=== PATIENT | female | born 1950 | race American Indian/Alaskan Native ===

== ENCOUNTER 2018-01-20 11:09 | Inpatient (IN) | payer BC ==
--- NOTE | 2018-01-20 11:43 | RAD ---
PROCEDURE: CHEST RADIOGRAPH, 1 VIEW HISTORY: Cough, SOB and lower extremity swelling . COMPARISON: None available. FINDINGS: LUNGS: Poor inspiration with low lung volumes, crowded bronchovascular markings and mild bibasilar atelectasis. PLEURA: No pneumothorax or pleural fluid seen. CARDIOVASCULAR: Heart appears enlarged. OSSEOUS STRUCTURES: No significant abnormalities. VISUALIZED UPPER ABDOMEN: Normal. OTHER FINDINGS: None. IMPRESSION: Poor inspiration with low lung volumes, crowded bronchovascular markings and mild bibasilar atelectasis.
--- NOTE | 2018-01-20 11:57 | C.PDOC ---
Time Seen by Provider: 01/20/18 11:49 Chief Complaint (Nursing): Shortness Of Breath Past Medical History Vital Signs: Last Vital Signs Temp 98.9 F 01/20/18 11:20 Pulse 101 H 01/20/18 11:20 Resp 17 01/20/18 11:20 BP 111/68 01/20/18 11:20 Pulse Ox 100 01/20/18 11:20 - Medical History PMH: HTN, Hypercholesterolemia - [facility] Procedures COLONOSCOPY (05/29/05) - Social History Hx Alcohol Use: No Hx Substance Use: No - Immunization History Hx Tetanus Toxoid Vaccination: No Hx Influenza Vaccination: Yes Hx Pneumococcal Vaccination: Yes ED Course And Treatment O2 Sat by Pulse Oximetry: 100 Disposition - Disposition
--- NOTE | 2018-01-20 12:01 | C.PDOC ---
History Of Present Illness <Miranda Carl - Last Filed: 01/21/18 13:16> <Gabriela Whitehead - Last Filed: 01/22/18 09:20> 67 year old female presents to the ED with concern for worsening pneumonia. Patient reports cough, shortness of breath, subjective fever and chills for 2 weeks. Patient states she saw her PMD and was started on Zithromax, of which she took doses on , Saturday, and Saturday. Patient was unable to complete the entire dose due to GI side effects. Patient reports increased dyspnea on exertion. She admits she is a smoker, but does not use any COPD/ Asthma medications. Patient denies chest pain, extremity numbness/weakness. (Miranda Carl) History Per: Patient History/Exam Limitations: no limitations Onset/Duration Of Symptoms: Other (2 weeks ) Current Symptoms Are (Timing): Still Present Exacerbating Factor(s): Exertion, Coughing Associated Symptoms: Fever, Chills. denies: Chest Pain Additional History Per: Patient <Miranda Carl - Last Filed: 01/21/18 13:16> <Gabriela Whitehead - Last Filed: 01/22/18 09:20> Time Seen by Provider: 01/20/18 11:49 Chief Complaint (Nursing): Shortness Of Breath Past Medical History Reviewed: Historical Data, Nursing Documentation, Vital Signs - Medical History PMH: HTN, Hypercholesterolemia Surgical History: No Surg Hx Family History: States: Unknown Family Hx - Social History Hx Alcohol Use: No Hx Substance Use: No - Immunization History Hx Tetanus Toxoid Vaccination: No Hx Influenza Vaccination: Yes Hx Pneumococcal Vaccination: Yes <Miranda Carl - Last Filed: 01/21/18 13:16> Vital Signs: Last Vital Signs Temp 98.0 F 01/22/18 07:05 Pulse 112 H 01/22/18 07:05 Resp 20 01/22/18 07:05 BP 127/60 01/22/18 07:05 Pulse Ox 94 L 01/22/18 07:05 - [facility] Procedures COLONOSCOPY (05/29/05) Review Of Systems Constitutional: Positive for: Fever, Chills Cardiovascular: Negative for: Chest Pain Respiratory: Positive for: Cough, Shortness of Breath, SOB with Excertion Neurological: Negative for: Weakness, Numbness <Miranda Carl - Last Filed: 01/21/18 13:16> Physical Exam - Physical Exam Appears: Non-toxic, No Acute Distress Skin: Normal Color, Warm, Dry Head: Atraumatic, Normacephalic Eye(s): bilateral: Normal Inspection Oral Mucosa: Moist Neck: Supple Chest: Symmetrical, No Deformity, No Tenderness Cardiovascular: Rhythm Regular, No Murmur Respiratory: No Rales, No Rhonchi, Wheezing (occasional, expiratory ), Other ( bronchial congestion noted ) Extremity: Normal ROM, Capillary Refill (less than 2 seconds ) Neurological/Psych: Oriented x3, Normal Speech, Normal Cognition <Miranda Carl - Last Filed: 01/21/18 13:16> ED Course And Treatment - Laboratory Results Result Diagrams: 01/20/18 11:57 01/20/18 11:57 ECG: Interpreted By Me ECG Rhythm: Sinus Tachycardia ECG Interpretation: Abnormal Rate From EC O2 Sat by Pulse Oximetry: 100 Pulse Ox Interpretation: Normal Progress Note: Bloodwork, urinalysis, CT Chest, CXR, EKG ordered and reviewed. Albuterol INH administered. <Miranda Carl - Last Filed: 01/21/18 13:16> - Laboratory Results Result Diagrams: 01/22/18 07:10 01/20/18 11:57 <Gabriela Whitehead - Last Filed: 01/22/18 09:20> Progress - Data Reviewed Data Reviewed: Lab, Diagnostic imaging, EKG, Old records <Miranda Carl Last Filed: 01/21/18 13:16> Disposition Counseled Patient/Family Regarding: Studies Performed, Diagnosis - Disposition Disposition Time: 14:00 <Miranda Carl - Last Filed: 01/21/18 13:16> <Gabriela Whitehead - Last Filed: 01/22/18 09:20> - Disposition Disposition: HOSPITALIZED Condition: STABLE - Clinical Impression Clinical Impression: Pneumonia, Dyspnea - Scribe Statement The provider has reviewed the documentation as recorded by the Scribe (Tahira Ko) <Miranda Carl - Last Filed: 01/21/18 13:16> <Gabriela Whitehead - Last Filed: 01/22/18 09:20> - Scribe Statement Provider Attestation: All medical record entries made by the Scribe were at my direction and personally dictated by me. I have reviewed the chart and agree that the record accurately reflects my personal performance of the history, physical exam, medical decision making, and the department course for this patient. I have also personally directed, reviewed, and agree with the discharge instructions and disposition. (SiddharthaMiranda) Physician Patient Turnover Patient Signed Over To: Gabriela Whitehead Handoff Comments: FU CT, DISPO <Miranda Carl - Last Filed: 01/21/18 13:16> Addendum <Miranda Carl - Last Filed: 01/21/18 13:16> <Gabriela Whitehead - Last Filed: 01/22/18 09:20> Addendum: 01/20/18 14:11 Patient admitted to medicine director of occupational therapy Dr. Karma Ko's service for left sided pneumonia, failued outpatient antibiotics (PO Azithromycin), mild pericardial effusion, thyromegaly. Patient's remote sensing technologist is Dr. Bay Le, consult entered. TSH ordered, and IV doxycycline ordered in addition to rocephin IV ( to cover for CAP). (Gabriela Whitehead) Decision To Admit <Miranda Carl - Last Filed: 01/21/18 13:16> - Pt Status Changed To: Hospital Disposition Of: Inpatient - Admit Certification Admit to Inpatient:: After my assessment, the patient will require hospitalization for at least two midnights. This is because of the severity of symptoms shown, intensity of services needed, and/or the medical risk in this patient being treated as an outpatient. - InPatient: Physician Admission Certification: I certify that this patient requires 2 or more midnights of care for the following reason:: see notes - . Bed Request Type: Telemetry Admitting Physician: Concepcion Ko <Gabriela Whitehead - Last Filed: 01/22/18 09:20> - . Patient Diagnosis: Pneumonia, Dyspnea, Failure of outpatient treatment, Thyromegaly, Pericardial effusion
[2018-01-20 12:02] LABS: BASO # 0.1 K/uL (0.0-0.2); BASO % 0.7 % (0.0-2.0); EOS % 0.1 % (0.0-4.0); HEMOGLOBIN 12.5 g/dL (11.0-16.0); LYMPH # 1.7 K/uL (1.0-4.3); LYMPH % 12.9 % (20.0-40.0); MEAN CELL VOLUME 91.1 fL (81.0-99.0); MEAN CORPUSCULAR HEMOGLOBIN 30.9 pg (27.0-31.0); MEAN CORPUSCULAR HGB CONC 33.9 g/dL (33.0-37.0); MEAN PLATELET VOLUME 8.2 fL (7.2-11.7); MONO # 0.7 K/uL (0.0-0.8); MONO % 5.8 % (0.0-10.0); NEUT # 10.5 K/uL (1.8-7.0); NEUT % 80.5 % (50.0-75.0); RBC 4.06 Mil/uL (3.80-5.20); RED CELL DISTRIBUTION WIDTH 13.5 % (11.5-14.5)
[2018-01-20 12:23] LABS: ALB/GLOB RATIO 1.3 (1.0-2.1); ALBUMIN 4.4 g/dL (3.5-5.0); CALCIUM 9.5 mg/dl (8.6-10.4); GFR AFRICAN-AMERICAN > 60; GFR NON-AFRICAN AMERICAN > 60
[2018-01-20 12:27] LABS: B-TYPE NATRIURETIC PEPTIDE 20.5 pg/mL (0-900)
[2018-01-20 12:28] LABS: ALT/SGPT 15 U/L (9-52); AST/SGOT 22 U/L (14-36); BLOOD UREA NITROGEN 19 mg/dL (7-17)
[2018-01-20 12:50] LABS: SQUAMOUS EPITHIAL 9 /hpf (0-5); URINE BACTERIA OCC (<OCC); URINE BILIRUBIN NEGATIVE (NEGATIVE); URINE BLOOD NEGATIVE (NEGATIVE); URINE CLARITY Hazy (Clear); URINE COLOR Amber (YELLOW); URINE GLUCOSE (UA) NORMAL (Normal); URINE PROTEIN NEGATIVE (NEGATIVE); URINE UROBILINOGEN NORMAL mg/dL (0.2-1.0)
[2018-01-20] MEDS ORDERED: Albuterol-Ipratrop 3 mg / 0.5 (3 ml) UD ONE (12:52)
[2018-01-20 12:53] LABS: URINE LEUKOCYTE ESTERASE TRACE Leu/uL (Negative)
[2018-01-20] MEDS: Albuterol-Ipratrop 3 mg / 0.5 (3 ml) UD IH SCH ×2 (13:00→13:01)
[2018-01-20] MEDS ORDERED: cefTRIAXone IV 1 gm in Dextros 50 ML IVPB ONE (13:06)
--- NOTE | 2018-01-20 13:45 | CT ---
PROCEDURE: CT chest dated 01/20/2018 HISTORY: COUGH SOB RO PNEUMONIA COMPARISON: Comparison made with chest radiograph obtained earlier same day TECHNIQUE: Contiguous helical/transaxial biotin images were obtained through the chest without intravenous contrast enhancement. Sagittal and coronal reconstructions were performed. Radiation dose (DLP): 483.51 mGy-cm. This CT exam was performed using one or more of the following dose reduction techniques: Automated exposure control, adjustment of the mA and/or kV according to patient size, and/or use of iterative reconstruction technique. FINDINGS: LUNGS: There is left lower lobe consolidation likely representing some combination of atelectasis and or infiltrate. Air bronchograms are present. There is also small left-sided effusion. Recommend follow-up CT scan following treatment to assess resolution and exclude underlying mass. Minor linear scarring changes seen in the left right lung base localized chronic atelectasis and or scarring the medial aspect the right middle lobe. Ground-glass opacities are also present in the lower with what appears represent small of early reticulonodular densities. . Some very minor ground-glass opacity seen in the lateral aspect right middle lobe. MEDIASTINUM: Heart is mildly enlarged. Small pericardial effusion. Central airways midline and patent. No large central endoluminal lesions. There are multiple small nonspecific mediastinal lymph nodes. Markedly enlarged heterogeneous lobular thyroid gland which results in compression of the trachea with mild shift of the trachea to right side. Findings may represent a large thyroid border however followup thyroid ultrasound recommended to exclude other pathology including thyroid carcinoma. There may also be a few punctate calcifications seen in the anterior margin left lobe. There is also a coarse calcification along the posterior margin of the enlarged thyroid gland which could conceivably represent calcification within the carotid bifurcation the calcification within the thyroid itself not excluded. . PLEURA: As above. No evidence pneumothorax. BONES: Mild multilevel degenerative spondylosis of the lower cervical, thoracic and to a lesser degree upper lumbar spine. UPPER ABDOMEN: There is a small approximately 2 cm elliptical shaped low-attenuation focus anterior aspect the left lobe liver bordering the fissure that exhibits Hounsfield units range between the low single digits and lower to mid teens that may represent a cyst. . Abdominal ultrasound could confirm if necessary. There also appear to be a few punctate hepatic calcifications possibly related to prior exposure to a granulomatous disease process. Mildly enlarged bilateral adrenal glands. OTHER FINDINGS: None. IMPRESSION: There is left lower lobe consolidation likely representing some combination of atelectasis and or infiltrate. Air bronchograms are present. There is also small left-sided effusion. Recommend follow-up CT scan following treatment to assess resolution and exclude underlying mass. Minor linear scarring changes seen in the left right lung base localized chronic atelectasis and or scarring the medial aspect the right middle lobe. Ground-glass opacities are also present in the lower with what appears represent small of early reticulonodular densities. . Some very minor ground-glass opacity seen in the lateral aspect right middle lobe. Cardiomegaly with small pericardial effusion. Massively enlarged heterogeneous thyroid gland. This could represent a large goiter however other thyroid pathology including neoplasm not excluded. Thyroid ultrasound followup recommended. Enlarged thyroid results and compression of the trachea and mild right-sided tracheal shift. Possible on hepatic cyst. Ultrasound followup could confirm.
--- NOTE | 2018-01-20 15:38 | US ---
HISTORY: thyroid enlargement TECHNIQUE: Sonographic evaluation of the thyroid gland. COMPARISON: FINDINGS: RIGHT LOBE: Measures 3.5 x 4.8 x 9.95 cm. Heterogenous echotexture, normal vascularity Nodules: None LEFT LOBE: Measures 3.8 x 5.9 x 10.9 cm. Heterogenous echotexture, normal vascularity Nodules: None ISTHMUS: Measures 0.36 cm. Nodules: None OTHER FINDINGS: None . IMPRESSION: Markedly enlarged gland. Diffuse heterogeneities without focal nodules.
--- NOTE | 2018-01-20 16:34 | CARD ---
APPROVED REPORT EXAM: Two-dimensional and M-mode echocardiogram with Doppler and color Doppler. Other Information Quality : AverageRhythm : NSR INDICATION Pericardial Effusion M-Mode DIMENSIONS RVDd1.56 (2.1-3.2cm)Left Atrium (MM)3.78 (2.5-4.0cm) IVSd1.04 (0.7-1.1cm)Aortic Root2.64 (2.2-3.7cm) LVDd4.44 (4.0-5.6cm)Aortic Cusp Exc.1.56 (1.5-2.0cm) PWd0.97 (0.7-1.1cm)FS (%) 33 % LVDs2.98 (2.0-3.8cm)LVEF (%)61 (>50%) Aortic Valve AoV Peak Iieimhqf206.5cm/[place] Peak GR.13mmHg Mitral Valve MV E Mwmkxmcs48.9cm/sMV A Aupytxjl654.8cm/sE/A ratio0.5 TDI E/Lateral E'0.0E/Medial E'0.0 Tricuspid Valve TR Peak [id number]/sTR Peak Gr.[id number] <Conclusion> poor window. tds. la,lv & ra rv appears normal size. nomral lv wall motion,thickness & systolic function with lvef of more than 70%. lv diastolic dysfunciton grade one. aortic,mitral,tv & pv grossly appears normal. mild tr with mildly elevated pulmonary systolic pressures of 44 mm of hg. normal size aortic root & ivc. no pericardial effusion.
--- NOTE | 2018-01-20 19:13 | CP.PCM.HP ---
Present on Admission - Present on Admission Any Indicators Present on Admission: No Past Patient History - Past Medical History & Family History Past Medical History?: Yes - Past Social History Smoking Status: Heavy Smoker > 10 Cigarettes Daily - CARDIAC Hx Cardiac Disorders: Yes Hx Hypercholesterolemia: Yes Hx Hypertension: Yes - PULMONARY Hx Respiratory Disorders: No - NEUROLOGICAL Hx Neurological Disorder: No - HEENT Hx HEENT Problems: No - RENAL Hx Chronic Kidney Disease: No - ENDOCRINE/METABOLIC Hx Endocrine Disorders: Yes Hx Diabetes Mellitus Type 2: Yes Other/Comment: thyroid condition - HEMATOLOGICAL/ONCOLOGICAL Hx Blood Disorders: No - INTEGUMENTARY Hx Dermatological Problems: No - MUSCULOSKELETAL/RHEUMATOLOGICAL Hx Musculoskeletal Disorders: No Hx Falls: No - GASTROINTESTINAL Hx Gastrointestinal Disorders: No - GENITOURINARY/GYNECOLOGICAL Hx Genitourinary Disorders: No - PSYCHIATRIC Hx Psychophysiologic Disorder: No Hx Substance Use: No - SURGICAL HISTORY Hx Surgeries: Yes Hx Section: Yes - ANESTHESIA Hx Anesthesia: Yes Hx Anesthesia Reactions: No Hx Malignant Hyperthermia: No Has any member of the family had a problem w/ anesthesia?: No Meds Allergies/Adverse Reactions: Allergies Allergy/AdvReac Type Severity Reaction Status Date / Time prednisone Allergy Intermediate Verified 01/20/18 11:28 azithromycin Allergy Mild DIARRHEA Verified 01/20/18 11:28 [From Zithromax Z-Francis] levofloxacin [From Levaquin] Allergy Mild RASH Verified 01/20/18 11:28 Physical Exam - Constitutional Appears: Well - Head Exam Head Exam: ATRAUMATIC, NORMAL INSPECTION, NORMOCEPHALIC - Eye Exam Eye Exam: EOMI, Normal appearance, PERRL - ENT Exam ENT Exam: Mucous Membranes Moist, Normal Exam - Neck Exam Neck exam: Positive for: Normal Inspection - Respiratory Exam Respiratory Exam: Decreased Breath Sounds - Cardiovascular Exam Cardiovascular Exam: REGULAR RHYTHM, +S1, +S2 - GI/Abdominal Exam GI & Abdominal Exam: Diminished Bowel Sounds, Soft - Rectal Exam Rectal Exam: Deferred Results - Vital Signs Recent Vital Signs: Last Vital Signs Temp 98.6 F 01/20/18 15:45 Pulse 118 H 01/20/18 15:45 Resp 20 01/20/18 15:45 BP 109/60 01/20/18 15:45 Pulse Ox 100 01/20/18 15:45 - Labs Result Diagrams: 01/20/18 11:57 01/20/18 11:57 Labs: Laboratory Results - last 24 hr 01/20/18 01/20/18 01/20/18 11:57 11:57 12:33 WBC 13.0 H RBC 4.06 Hgb 12.5 Hct 37.0 MCV 91.1 MCH 30.9 MCHC 33.9 RDW 13.5 Plt Count 289 MPV 8.2 Neut % (Auto) 80.5 H Lymph % (Auto) 12.9 L [place] % (Auto) 5.8 Eos % (Auto) 0.1 Baso % (Auto) 0.7 Neut # (Auto) 10.5 H Lymph # (Auto) 1.7 [place] # (Auto) 0.7 Eos # (Auto) 0.0 Baso # (Auto) 0.1 Sodium 137 Potassium 4.5 Chloride 94 L Carbon Dioxide 33 H Anion Gap 15 BUN 19 H Creatinine 0.9 Est GFR ( Amer) > 60 Est GFR (Non-Af Amer) > 60 POC Glucose (mg/dL) Random Glucose 207 H Calcium 9.5 Total Bilirubin 1.1 AST 22 ALT 15 Alkaline Phosphatase 81 Troponin I < 0.0120 NT-Pro-B Natriuret Pep 20.5 Total Protein 7.8 Albumin 4.4 Globulin 3.4 Albumin/Globulin Ratio 1.3 TSH 3rd Generation 0.50 Urine Color [place]ili[place] Urine Clarity Hazy Urine pH 5.0 Ur Specific [place] 1.019 Urine Protein Negative Urine Glucose (UA) Normal Urine Ketones Negative Urine Blood Negative Urine Nitrate Negative Urine Bilirubin Negative Urine Urobilinogen Normal Ur Leukocyte Esterase Trace Urine WBC (Auto) 8 H Urine RBC (Auto) 2 Ur Squamous Epith Cells 9 H Urine Bacteria Occ H 01/20/18 17:07 WBC RBC Hgb Hct MCV MCH MCHC RDW Plt Count MPV Neut % (Auto) Lymph % (Auto) [place] % (Auto) Eos % (Auto) Baso % (Auto) Neut # (Auto) Lymph # (Auto) [place] # (Auto) Eos # (Auto) Baso # (Auto) Sodium Potassium Chloride Carbon Dioxide Anion Gap BUN Creatinine Est GFR ( Amer) Est GFR (Non-Af Amer) POC Glucose (mg/dL) 283 H Random Glucose Calcium Total Bilirubin AST ALT Alkaline Phosphatase Troponin I NT-Pro-B Natriuret Pep Total Protein Albumin Globulin Albumin/Globulin Ratio TSH 3rd Generation Urine Color Urine Clarity Urine pH Ur Specific [place] Urine Protein Urine Glucose (UA) Urine Ketones Urine Blood Urine Nitrate Urine Bilirubin Urine Urobilinogen Ur Leukocyte Esterase Urine WBC (Auto) Urine RBC (Auto) Ur Squamous Epith Cells Urine Bacteria Assessment & Plan - Assessment and Plan (Free Text) Plan: IV Rocephin IV doxycycline pantoprazole Lovenox continue glyburide/metformin all the medication ID consult Fingerstick before meals and at bedtime low-dose NovoLog
[2018-01-20] MEDS: (Novolog) Insulin Aspart, Recombinant 100 u/ml 10 ml vial SC SCH (22:42)
[2018-01-21] MEDS: (Novolog) Insulin Aspart, Recombinant 100 u/ml 10 ml vial SC SCH ×4 (08:30→21:21)
[2018-01-21] MEDS: Multivitamin With Minerals Tab PO SCH (10:00)
[2018-01-21] MEDS ORDERED: VITAMIN B COMPLEX PO SCH (10:00)
[2018-01-21] MEDS: Pantoprazole 40 mg EC Tab PO SCH (10:00)
[2018-01-21] MEDS ORDERED: MULTIVITAMIN PO SCH (10:00)
[2018-01-21] MEDS: (Lantus) Insulin Glargine, Recombinant SC SCH (10:01)
[2018-01-21] MEDS: Enoxaparin 40 mg Syringe SC SCH (10:01)
--- NOTE | 2018-01-21 10:44 | CP.PCM.CON ---
History of Present Illness - History of Present Illness History of Present Illness: 67 year old female presents to the ED with concern for worsening pneumonia. Patient reports cough, shortness of breath, subjective fever and chills for 2 weeks. Patient states she saw her PMD and was started on Zithromax, of which she took doses on , Saturday, and Saturday. Patient was unable to complete the entire dose due to GI side effects. Patient reports increased dyspnea on exertion. She admits she is a smoker, but does not use any COPD/ Asthma medications. Patient denies chest pain, extremity numbness/weakness. found to have massive thyromegaly and LLL infiltrate on CT work up in progress Review of Systems - Review of Systems All systems: reviewed and no additional remarkable complaints except - Constitutional Constitutional: As Per HPI - EENT Eyes: absent: As Per HPI, Blind Spots, Blurred Vision, Change in Vision, Decreased Night Vision, Diplopia, Discharge, Dry Eye, Exophthalmos, Floaters, Irritation, Itchy Eyes, Loss of Peripheral Vision, Pain, Photophobia, Requires Corrective Lenses, Sees Flashes, Spots in Vision, Tunnel Vision, Other Visual Disturbances, Loss of Vision, Other Ears: absent: As Per HPI, Decreased Hearing, Ear Discharge, Ear Pain, Tinnitus, Abnormal Hearing, Disequilibrium, Dizziness, Other Nose/Mouth/Throat: absent: As Per HPI, Epistaxis, Nasal Congestion, Nasal Discharge, Nasal Obstruction, Nasal Trauma, Nose Pain, Post Nasal Drip, Sinus Pain, Sinus Pressure, Bleeding Gums, Change in Voice, Dental Pain, Dry Mouth, Dysphagia, Halitosis, Hoarsness, Lip Swelling, Mouth Lesions, Mouth Pain, Odynophagia, Sore Throat, Throat Swelling, Tongue Swelling, Facial Pain, Neck Pain, Neck Mass, Other - Cardiovascular Cardiovascular: absent: As Per HPI, Acrocyanosis, Chest Pain, Chest Pain at Rest , Chest Pain with Activity, Claudication, Diaphoresis, Dyspnea, Dyspnea on Exertion, Edema, Irregular Heart Rhythm, Pain Radiating to Arm/Neck/Jaw, Leg Edema, Leg Ulcers, Lightheadedness, Orthopnea, Palpitations, Paroxysmal Nocturnal Dyspnea, Pedal Edema, Radiating Pain, Rapid Heart Rate, Slow Heart Rate, Syncope, Other - Respiratory Respiratory: As Per HPI, Cough, Dyspnea. absent: Hemoptysis - Gastrointestinal Gastrointestinal: absent: As Per HPI, Abdominal Pain, Belching, Bloating, Change in Bowel Habits, Change in Stool Character, Coffee Ground Emesis, Constipation, Cramping, Diarrhea, Dyspepsia, Dysphagia, Early Satiety, Excessive Flatus, Fecal Incontinence, Heartburn, Hematemesis, Hematochezia, Loose Stools, Melena, Nausea, Odynophagia, Temesmus, Vomiting, Other - Genitourinary Genitourinary: absent: As Per HPI, Change in Urinary Stream, Difficulty Urinating, Dysuria, Flank Pain, Hematuria, Pyuria, Nocturia, Urinary Incontinence, Urinary Frequency, Urinary Hesitance, Urinary Urgency, Voiding Freq/Small Amts, Freq UTI, Hx Renal/Bladder Calculi, Hx /Renal Surgery, Bladder Distension, Other - Reproductive: Female Reproductive:Female: absent: As Per HPI, Amenorrhea, Amenorrhea/ Control, Currently Menstual, Cycle <21 Days, Cycle >35 Days, Cycle Variable, Menses 1-7 Days, Menses >/= 8 Days, Menses Variable, Cycle > 4 Weeks Between, No Menses for 6 Months, Heavy Menses, Light Menses, Normal Menses, Spotting Between Cycles , S/P Hysterectomy, Menopausal, Post Menopausal, Premenarche, Abnormal Vaginal Bleeding, Dysmenorrhea, Dyspareunia, Genital Lesions, Genital Pruritis, Pelvic Pain, Prolapse Symptoms, Sexual Dysfunction, Vaginal Discharge, Vaginal Dryness , Vaginal Odor, Vaginal Pruritis, Other - Menstruation Menstruation: absent: As Per HPI, Amenorrhea, Amenorrhea/ Control, Currently Menstual, Cycle <21 Days, Cycle >35 Days, Cycle Variable, Menses 1-7 Days, Menses >/= 8 Days, Menses Variable, Cycle > 4 Weeks Between, No Menses for 6 Months, Heavy Menses, Light Menses, Normal Menses, Spotting Between Cycles , S/P Hysterectomy, Menopausal, Post Menopausal, Premenarche, Abnormal Vaginal Bleeding, Dysmenorrhea, Other - Musculoskeletal Musculoskeletal: absent: As Per HPI, Abnormal Gait, Arthralgias, Atrophy, Back Pain, Deformity, Joint Swelling, Limited Range of Motion, Loss of Height, Muscle Cramps, Muscle Weakness, Myalgias, Neck Pain, Numbness, Radiating Pain into Limb, Stiffness, Tingling, Other - Integumentary Integumentary: absent: As Per HPI, Acne, Alopecia, Bleeding Lesions, Change in Hair, Change in Nails, Change in Pigmentation, Changing Lesions, Dry Skin, Erythema, Furuncle, Hirsutism, Lesions, New Lesions, Non-Healing Lesions, Photosensitivity, Pruritus, Rash, Skin Pain, Skin Ulcer, Sores, Striae, Swelling , Unusual Bruising, Wounds, Jaundice, Other - Neurological Neurological: absent: As Per HPI, Abnormal Gait, Abnormal Hearing, Abnormal Movements, Abnormal Speech, Behavioral Changes, Burning Sensations, Confusion, Convulsions, Disequilibrium, Dizziness, Numbness, Focal Weakness, Frequent Falls , Headaches, Lack of Coordination, Loss of Vision, Memory Loss, Paresthesias, Radicular Pain, Restless Legs, Sensory Deficit, Syncope, Tingling, Tremor, Vertigo, Weakness, Other Visual Disturbances, Other - Psychiatric Psychiatric: absent: As Per HPI, Abnormal Sleep Pattern, Anhedonia, Anxiety, Auditory Hallucinations, Behavioral Changes, Change in Appetite, Change in Libido, Confusion, Depression, Difficulty Concentrating, Hallucinations, Homicidal Ideation, Hopelessness, Irritability, Memory Loss, Mood Swings, Panic Attacks, Paranoia, Suicidal Ideation, Visual Hallucinations, Tactile Hallucinations, Other - Endocrine Endocrine: As Per HPI - Hematologic/Lymphatic Hematologic: absent: As Per HPI, Easy Bleeding, Easy Bruising, Lymphadenopathy, Other Past Patient History - Past Medical History & Family History Past Medical History?: Yes - Past Social History Smoking Status: Heavy Smoker > 10 Cigarettes Daily - CARDIAC Hx Cardiac Disorders: Yes Hx Hypercholesterolemia: Yes Hx Hypertension: Yes - PULMONARY Hx Respiratory Disorders: No - NEUROLOGICAL Hx Neurological Disorder: No - HEENT Hx HEENT Problems: No - RENAL Hx Chronic Kidney Disease: No - ENDOCRINE/METABOLIC Hx Endocrine Disorders: Yes Hx Diabetes Mellitus Type 2: Yes Other/Comment: thyroid condition - HEMATOLOGICAL/ONCOLOGICAL Hx Blood Disorders: No - INTEGUMENTARY Hx Dermatological Problems: No - MUSCULOSKELETAL/RHEUMATOLOGICAL Hx Musculoskeletal Disorders: No Hx Falls: No - GASTROINTESTINAL Hx Gastrointestinal Disorders: No - GENITOURINARY/GYNECOLOGICAL Hx Genitourinary Disorders: No - PSYCHIATRIC Hx Psychophysiologic Disorder: No Hx Substance Use: No - SURGICAL HISTORY Hx Surgeries: Yes Hx Section: Yes - ANESTHESIA Hx Anesthesia: Yes Hx Anesthesia Reactions: No Hx Malignant Hyperthermia: No Has any member of the family had a problem w/ anesthesia?: No Meds Allergies/Adverse Reactions: Allergies Allergy/AdvReac Type Severity Reaction Status Date / Time prednisone Allergy Intermediate Verified 01/20/18 11:28 azithromycin Allergy Mild DIARRHEA Verified 01/20/18 11:28 [From Zithromax Z-Francis] levofloxacin [From Levaquin] Allergy Mild RASH Verified 01/20/18 11:28 - Medications Medications: Current Medications Aspirin (Aspirin Chewable) 81 mg PO DAILY [facility] Last Admin: 01/21/18 10:12 Dose: 81 mg Cyanocobalamin (Vitamin B12 1000 Mcg Tab) 1,000 mcg PO DAILY [facility] Last Admin: 01/21/18 10:00 Dose: 1,000 mcg Enoxaparin Sodium (Lovenox) 40 mg SC DAILY [facility] Last Admin: 01/21/18 10:01 Dose: 40 mg Glyburide (Micronase) 5 mg PO BID [facility] Last Admin: 01/21/18 10:00 Dose: 5 mg Glyburide (Micronase) 2 mg PO DAILY [facility] Last Admin: 01/21/18 10:14 Dose: 2 mg Ceftriaxone Sodium 1 gm/ (Sodium Chloride) 100 mls @ 100 mls/hr IVPB DAILY [facility] PRN Reason: Protocol Last Admin: 01/21/18 10:03 Dose: 100 mls/hr Doxycycline Hyclate 100 mg/ (Sodium Chloride) 100 mls @ 100 mls/hr IVPB Q12H [facility] PRN Reason: Protocol Last Admin: 01/21/18 02:22 Dose: 100 mls/hr Insulin Aspart (Novolog) 0 unit SC ACHS [facility] PRN Reason: Protocol Last Admin: 01/21/18 08:30 Dose: 2 unit Insulin Glargine (Lantus) 48 unit SC DAILY [facility] Last Admin: 01/21/18 10:01 Dose: 48 unit Metformin HCl (Glucophage) 500 mg PO BID [facility] Last Admin: 01/21/18 10:01 Dose: 500 mg Methimazole (Tapazole) 1.5 mg PO QWK [facility] Multivitamins/Minerals (Therapeutic-M Tab) 1 tab PO DAILY [facility] Last Admin: 01/21/18 10:00 Dose: 1 tab Nicotine (Nicoderm Cq) 1 patch TD DAILY [facility] Last Admin: 01/21/18 10:02 Dose: Not Given Pantoprazole Sodium (Protonix Ec Tab) 40 mg PO DAILY [facility] Last Admin: 01/21/18 10:00 Dose: 40 mg Rosuvastatin Calcium (Crestor) 5 mg PO HS [facility] Physical Exam - Constitutional Appears: Non-toxic, Chronically Ill - Head Exam Head Exam: NORMOCEPHALIC - Eye Exam Eye Exam: PERRL - ENT Exam ENT Exam: Mucous Membranes Dry - Neck Exam Neck exam: Positive for: Thyromegaly. Negative for: Lymphadenopathy - Respiratory Exam Respiratory Exam: Decreased Breath Sounds, Prolonged Expiratory Phase, Rales, Rhonchi - Cardiovascular Exam Cardiovascular Exam: REGULAR RHYTHM - GI/Abdominal Exam GI & Abdominal Exam: Diminished Bowel Sounds, Soft - Rectal Exam Rectal Exam: Deferred - Exam Exam: NORMAL INSPECTION - Extremities Exam Extremities exam: Negative for: pedal edema - Back Exam Back exam: absent: CVA tenderness (L), CVA tenderness (R), paraspinal tenderness - Neurological Exam Neurological exam: Alert, CN II-XII Intact, Oriented x3, Reflexes Normal - Psychiatric Exam Psychiatric exam: Normal Mood - Skin Skin Exam: Dry Results - Vital Signs Recent Vital Signs: Last Vital Signs Temp 98.3 F 01/21/18 07:15 Pulse 98 H 01/21/18 07:15 Resp 20 01/21/18 07:15 BP 115/75 01/21/18 07:15 Pulse Ox 100 01/21/18 07:15 - Labs Result Diagrams: 01/20/18 11:57 01/20/18 11:57 Labs: Laboratory Results - last 24 hr 01/20/18 01/20/18 01/20/18 11:57 11:57 12:33 WBC 13.0 H RBC 4.06 Hgb 12.5 Hct 37.0 MCV 91.1 MCH 30.9 MCHC 33.9 RDW 13.5 Plt Count 289 MPV 8.2 Neut % (Auto) 80.5 H Lymph % (Auto) 12.9 L [place] % (Auto) 5.8 Eos % (Auto) 0.1 Baso % (Auto) 0.7 Neut # (Auto) 10.5 H Lymph # (Auto) 1.7 [place] # (Auto) 0.7 Eos # (Auto) 0.0 Baso # (Auto) 0.1 Sodium 137 Potassium 4.5 Chloride 94 L Carbon Dioxide 33 H Anion Gap 15 BUN 19 H Creatinine 0.9 Est GFR ( Amer) > 60 Est GFR (Non-Af Amer) > 60 POC Glucose (mg/dL) Random Glucose 207 H Calcium 9.5 Total Bilirubin 1.1 AST 22 ALT 15 Alkaline Phosphatase 81 Troponin I < 0.0120 NT-Pro-B Natriuret Pep 20.5 Total Protein 7.8 Albumin 4.4 Globulin 3.4 Albumin/Globulin Ratio 1.3 TSH 3rd Generation 0.50 Urine Color Liliya Urine Clarity Hazy Urine pH 5.0 Ur Specific [place] 1.019 Urine Protein Negative Urine Glucose (UA) Normal Urine Ketones Negative Urine Blood Negative Urine Nitrate Negative Urine Bilirubin Negative Urine Urobilinogen Normal Ur Leukocyte Esterase Trace Urine WBC (Auto) 8 H Urine RBC (Auto) 2 Ur Squamous Epith Cells 9 H Urine Bacteria Occ H 01/20/18 01/20/18 01/21/18 17:07 21:44 06:02 WBC RBC Hgb Hct MCV MCH MCHC RDW Plt Count MPV Neut % (Auto) Lymph % (Auto) [place] % (Auto) Eos % (Auto) Baso % (Auto) Neut # (Auto) Lymph # (Auto) [place] # (Auto) Eos # (Auto) Baso # (Auto) Sodium Potassium Chloride Carbon Dioxide Anion Gap BUN Creatinine Est GFR ( Amer) Est GFR (Non-Af Amer) POC Glucose (mg/dL) 283 H 236 H 226 H Random Glucose Calcium Total Bilirubin AST ALT Alkaline Phosphatase Troponin I NT-Pro-B Natriuret Pep Total Protein Albumin Globulin Albumin/Globulin Ratio TSH 3rd Generation Urine Color Urine Clarity Urine pH Ur Specific [place] Urine Protein Urine Glucose (UA) Urine Ketones Urine Blood Urine Nitrate Urine Bilirubin Urine Urobilinogen Ur Leukocyte Esterase Urine WBC (Auto) Urine RBC (Auto) Ur Squamous Epith Cells Urine Bacteria Assessment & Plan (1) Pneumonia Status: Acute (2) Thyromegaly Status: Acute (3) Failure of outpatient treatment Status: Acute - Assessment and Plan (Free Text) Assessment: await cultures recc Pulm eval IV antibiotics
--- NOTE | 2018-01-21 11:17 | CP.PCM.CON ---
History of Present Illness - History of Present Illness History of Present Illness: CHART REVIEWED. PT SEEN AND EXAMINED 67 YO B FEMALE WITH A HX HTN., DM, HYPERLIPIDEMIA, GOITER,/ HYPERTH FOLLOWED BY [facility], ADM 01/20/18 WITH INCREASED MOD-SEVERE COUGH X 2 WKS WORSE DAYTIME., + WHITE SPUTUM., NO HEMOPTYSIS., NO SOB NO CP., +POST NASAL DRIP +SINUS CONGESTION., NO FEVER. NO RELIEF WITH ZMAX., DEVELOPED +N/V +DIARRHEA . NO GERD. NO WT LOSS. NO HX ASTHMA., STILL SMOKING. NO HX TB OR EXPOSURE. Review of Systems - Review of Systems All systems: reviewed and no additional remarkable complaints except - Constitutional Constitutional: Malaise, Weakness - EENT Eyes: absent: Change in Vision Nose/Mouth/Throat: Nasal Congestion, Post Nasal Drip, Sinus Pressure - Cardiovascular Cardiovascular: absent: Chest Pain, Chest Pain with Activity, Dyspnea, Pedal Edema - Respiratory Respiratory: Cough, Chest Congestion, Excessive Mucous Production. absent: Dyspnea, Hemoptysis, Change in Mucous Color - Gastrointestinal Gastrointestinal: Diarrhea, Nausea, Vomiting - Genitourinary Genitourinary: absent: Difficulty Urinating - Musculoskeletal Musculoskeletal: absent: Muscle Weakness, Myalgias - Integumentary Integumentary: absent: Rash - Neurological Neurological: absent: Confusion, Focal Weakness - Psychiatric Psychiatric: absent: Anxiety - Endocrine Endocrine: absent: Palpitations - Hematologic/Lymphatic Hematologic: absent: Easy Bruising Past Patient History - Past Medical History & Family History Past Medical History?: Yes Past Family History: Reviewed and not pertinent Pertinent Family History: PT ADOPTED. - Past Social History Smoking Status: Heavy Smoker > 10 Cigarettes Daily Chewing Tobacco Use: No Cigar Use: No Alcohol: None Drugs: Denies - CARDIAC Hx Cardiac Disorders: Yes Hx Hypercholesterolemia: Yes Hx Hypertension: Yes - PULMONARY Hx Respiratory Disorders: No - NEUROLOGICAL Hx Neurological Disorder: No - HEENT Hx HEENT Problems: No Hx Sinusitis: Yes - RENAL Hx Chronic Kidney Disease: No - ENDOCRINE/METABOLIC Hx Endocrine Disorders: Yes Hx Diabetes Mellitus Type 2: Yes Other/Comment: thyroid condition - HEMATOLOGICAL/ONCOLOGICAL Hx Blood Disorders: No - INTEGUMENTARY Hx Dermatological Problems: No - MUSCULOSKELETAL/RHEUMATOLOGICAL Hx Musculoskeletal Disorders: No Hx Falls: No - GASTROINTESTINAL Hx Gastrointestinal Disorders: No - GENITOURINARY/GYNECOLOGICAL Hx Genitourinary Disorders: No - PSYCHIATRIC Hx Psychophysiologic Disorder: No Hx Substance Use: No - SURGICAL HISTORY Hx Surgeries: Yes Hx Section: Yes Hx Tonsillectomy: Yes - ANESTHESIA Hx Anesthesia: Yes Hx Anesthesia Reactions: No Hx Malignant Hyperthermia: No Has any member of the family had a problem w/ anesthesia?: No Meds Allergies/Adverse Reactions: Allergies Allergy/AdvReac Type Severity Reaction Status Date / Time prednisone Allergy Intermediate Verified 01/20/18 11:28 azithromycin Allergy Mild DIARRHEA Verified 01/20/18 11:28 [From Zithromax Z-Francis] levofloxacin [From Levaquin] Allergy Mild RASH Verified 01/20/18 11:28 - Medications Medications: Current Medications Aspirin (Aspirin Chewable) 81 mg PO DAILY [facility] Last Admin: 01/21/18 10:12 Dose: 81 mg Cyanocobalamin (Vitamin B12 1000 Mcg Tab) 1,000 mcg PO DAILY [facility] Last Admin: 01/21/18 10:00 Dose: 1,000 mcg Enoxaparin Sodium (Lovenox) 40 mg SC DAILY [facility] Last Admin: 01/21/18 10:01 Dose: 40 mg Glyburide (Micronase) 5 mg PO BID [facility] Last Admin: 01/21/18 10:00 Dose: 5 mg Glyburide (Micronase) 2 mg PO DAILY [facility] Last Admin: 01/21/18 10:14 Dose: 2 mg Ceftriaxone Sodium 1 gm/ (Sodium Chloride) 100 mls @ 100 mls/hr IVPB DAILY [facility] PRN Reason: Protocol Last Admin: 01/21/18 10:03 Dose: 100 mls/hr Doxycycline Hyclate 100 mg/ (Sodium Chloride) 100 mls @ 100 mls/hr IVPB Q12H [facility] PRN Reason: Protocol Last Admin: 01/21/18 02:22 Dose: 100 mls/hr Insulin Aspart (Novolog) 0 unit SC ACHS [facility] PRN Reason: Protocol Last Admin: 01/21/18 08:30 Dose: 2 unit Insulin Glargine (Lantus) 48 unit SC DAILY [facility] Last Admin: 01/21/18 10:01 Dose: 48 unit Metformin HCl (Glucophage) 500 mg PO BID [facility] Last Admin: 01/21/18 10:01 Dose: 500 mg Methimazole (Tapazole) 1.5 mg PO QWK [facility] Multivitamins/Minerals (Therapeutic-M Tab) 1 tab PO DAILY [facility] Last Admin: 01/21/18 10:00 Dose: 1 tab Nicotine (Nicoderm Cq) 1 patch TD DAILY [facility] Last Admin: 01/21/18 10:02 Dose: Not Given Pantoprazole Sodium (Protonix Ec Tab) 40 mg PO DAILY [facility] Last Admin: 01/21/18 10:00 Dose: 40 mg Rosuvastatin Calcium (Crestor) 5 mg PO [facility] Physical Exam - Constitutional Appears: Non-toxic - Head Exam Head Exam: ATRAUMATIC, NORMOCEPHALIC - Eye Exam Eye Exam: EOMI, Normal appearance - ENT Exam ENT Exam: Mucous Membranes Moist - Neck Exam Neck exam: Positive for: Thyromegaly. Negative for: Tenderness - Respiratory Exam Respiratory Exam: Decreased Breath Sounds. absent: Wheezes, Respiratory Distress - Cardiovascular Exam Cardiovascular Exam: RRR, +S1, +S2 - GI/Abdominal Exam GI & Abdominal Exam: Soft. absent: Tenderness - Rectal Exam Rectal Exam: Deferred - Extremities Exam Extremities exam: Negative for: calf tenderness, pedal edema - Back Exam Back exam: absent: CVA tenderness (L), CVA tenderness (R), rash noted - Neurological Exam Neurological exam: Alert, CN II-XII Intact, Oriented x3 - Psychiatric Exam Psychiatric exam: Normal Affect, Normal Mood Results - Vital Signs Recent Vital Signs: Last Vital Signs Temp 98.3 F 01/21/18 07:15 Pulse 98 H 01/21/18 07:15 Resp 20 01/21/18 07:15 BP 115/75 01/21/18 07:15 Pulse Ox 100 01/21/18 07:15 - Labs Result Diagrams: 01/20/18 11:57 01/20/18 11:57 Labs: Laboratory Results - last 24 hr 01/20/18 01/20/18 01/20/18 11:57 11:57 12:33 WBC 13.0 H RBC 4.06 Hgb 12.5 Hct 37.0 MCV 91.1 MCH 30.9 MCHC 33.9 RDW 13.5 Plt Count 289 MPV 8.2 Neut % (Auto) 80.5 H Lymph % (Auto) 12.9 L [place] % (Auto) 5.8 Eos % (Auto) 0.1 Baso % (Auto) 0.7 Neut # (Auto) 10.5 H Lymph # (Auto) 1.7 [place] # (Auto) 0.7 Eos # (Auto) 0.0 Baso # (Auto) 0.1 Sodium 137 Potassium 4.5 Chloride 94 L Carbon Dioxide 33 H Anion Gap 15 BUN 19 H Creatinine 0.9 Est GFR ( Amer) > 60 Est GFR (Non-Af Amer) > 60 POC Glucose (mg/dL) Random Glucose 207 H Calcium 9.5 Total Bilirubin 1.1 AST 22 ALT 15 Alkaline Phosphatase 81 Troponin I < 0.0120 NT-Pro-B Natriuret Pep 20.5 Total Protein 7.8 Albumin 4.4 Globulin 3.4 Albumin/Globulin Ratio 1.3 TSH 3rd Generation 0.50 Urine Color Liliya Urine Clarity Hazy Urine pH 5.0 Ur Specific [place] 1.019 Urine Protein Negative Urine Glucose (UA) Normal Urine Ketones Negative Urine Blood Negative Urine Nitrate Negative Urine Bilirubin Negative Urine Urobilinogen Normal Ur Leukocyte Esterase Trace Urine WBC (Auto) 8 H Urine RBC (Auto) 2 Ur Squamous Epith Cells 9 H Urine Bacteria Occ H 01/20/18 01/20/18 01/21/18 17:07 21:44 06:02 WBC RBC Hgb Hct MCV MCH MCHC RDW Plt Count MPV Neut % (Auto) Lymph % (Auto) [place] % (Auto) Eos % (Auto) Baso % (Auto) Neut # (Auto) Lymph # (Auto) [place] # (Auto) Eos # (Auto) Baso # (Auto) Sodium Potassium Chloride Carbon Dioxide Anion Gap BUN Creatinine Est GFR ( Amer) Est GFR (Non-Af Amer) POC Glucose (mg/dL) 283 H 236 H 226 H Random Glucose Calcium Total Bilirubin AST ALT Alkaline Phosphatase Troponin I NT-Pro-B Natriuret Pep Total Protein Albumin Globulin Albumin/Globulin Ratio TSH 3rd Generation Urine Color Urine Clarity Urine pH Ur Specific [place] Urine Protein Urine Glucose (UA) Urine Ketones Urine Blood Urine Nitrate Urine Bilirubin Urine Urobilinogen Ur Leukocyte Esterase Urine WBC (Auto) Urine RBC (Auto) Ur Squamous Epith Cells Urine Bacteria Assessment & Plan (1) Hypertension Status: Acute (2) Diabetes Status: Acute (3) Hyperlipidemia Status: Acute (4) Smoking Status: Acute (5) Failure of outpatient treatment Status: Acute (6) Pneumonia Status: Acute (7) Thyromegaly Status: Acute - Assessment and Plan (Free Text) Assessment: 67 YO FEMALE WITH A HX MULT MED PROBS ADM WITH COUGH, +LLL PNA ON CXR, COMM ACQUIRED., R/O ATYPICAL., CXR REVIEWED., CT CHEST REVIEWED., CONT IV EMPIRIC AB. , CONT PULM TOILET., NEB BD., MONITOR O2 SAT., R/O COPD, CHECK PFT'S WHEN STABLE., GI/DVT PROPHYLAXIS. SMOKING CESSATION., DISCUSSED WITH STAFF AND ID.
--- NOTE | 2018-01-21 12:45 | CP.PCM.PN ---
Subjective - Date & Time of Evaluation Date of Evaluation: 01/21/18 Time of Evaluation: 10:20 - Subjective Subjective: clinically same Objective - Vital Signs/Intake and Output Vital Signs (last 24 hours): Temp Pulse Resp BP Pulse Ox 98.3 F 98 H 20 115/75 100 01/21/18 07:15 01/21/18 07:15 01/21/18 07:15 01/21/18 07:15 01/21/18 07:15 - Medications Medications: Current Medications Albuterol/Ipratropium (Duoneb 3 Mg/0.5 Mg (3 Ml) Ud) 3 ml INH RQ6 [facility] Aspirin (Aspirin Chewable) 81 mg PO DAILY [facility] Last Admin: 01/21/18 10:12 Dose: 81 mg Cyanocobalamin (Vitamin B12 1000 Mcg Tab) 1,000 mcg PO DAILY [facility] Last Admin: 01/21/18 10:00 Dose: 1,000 mcg Enoxaparin Sodium (Lovenox) 40 mg SC DAILY [facility] Last Admin: 01/21/18 10:01 Dose: 40 mg Glyburide (Micronase) 5 mg PO BID [facility] Last Admin: 01/21/18 10:00 Dose: 5 mg Ceftriaxone Sodium 1 gm/ (Sodium Chloride) 100 mls @ 100 mls/hr IVPB DAILY [facility] PRN Reason: Protocol Last Admin: 01/21/18 10:03 Dose: 100 mls/hr Doxycycline Hyclate 100 mg/ (Sodium Chloride) 100 mls @ 100 mls/hr IVPB Q12H [facility] PRN Reason: Protocol Last Admin: 01/21/18 02:22 Dose: 100 mls/hr Insulin Aspart (Novolog) 0 unit SC ACHS [facility] PRN Reason: Protocol Last Admin: 01/21/18 08:30 Dose: 2 unit Insulin Glargine (Lantus) 48 unit SC DAILY [facility] Last Admin: 01/21/18 10:01 Dose: 48 unit Metformin HCl (Glucophage) 500 mg PO BID [facility] Last Admin: 01/21/18 10:01 Dose: 500 mg Methimazole (Tapazole) 5 mg PO DAILY [facility] Methimazole (Tapazole) 2.5 mg PO Q7D [facility] Methimazole (Tapazole) 2.5 mg PO Q7D [facility] Multivitamins/Minerals (Therapeutic-M Tab) 1 tab PO DAILY [facility] Last Admin: 01/21/18 10:00 Dose: 1 tab Nicotine (Nicoderm Cq) 1 patch TD DAILY [facility] Last Admin: 01/21/18 10:02 Dose: Not Given Pantoprazole Sodium (Protonix Ec Tab) 40 mg PO DAILY [facility] Last Admin: 01/21/18 10:00 Dose: 40 mg Rosuvastatin Calcium (Crestor) 5 mg PO HS [facility] - Labs Labs: 01/20/18 11:57 01/20/18 11:57 - Constitutional Appears: Well - Head Exam Head Exam: ATRAUMATIC, NORMAL INSPECTION, NORMOCEPHALIC - Eye Exam Eye Exam: EOMI, Normal appearance, PERRL Pupil Exam: NORMAL ACCOMODATION, PERRL - ENT Exam ENT Exam: Mucous Membranes Moist, Normal Exam - Neck Exam Neck Exam: Full ROM, Normal Inspection. absent: Lymphadenopathy - Respiratory Exam Respiratory Exam: Decreased Breath Sounds - Cardiovascular Exam Cardiovascular Exam: REGULAR RHYTHM, +S1, +S2 - GI/Abdominal Exam GI & Abdominal Exam: Soft, Diminished Bowel Sounds - Rectal Exam Rectal Exam: Deferred
[2018-01-21] MEDS: Albuterol-Ipratrop 3 mg / 0.5 (3 ml) UD INH SCH ×2 (13:27→19:53)
[2018-01-21 14:43] LABS: FREE T4 1.16 ng/dL (0.78-2.19)
--- NOTE | 2018-01-21 19:40 | CARD ---
APPROVED REPORT EKG Measurement Heart [id number] <Conclusion> Sinus tachycardia Possible Left atrial enlargement Incomplete right bundle branch block Left anterior fascicular block Anterior infarct, age undetermined Abnormal ECG
[2018-01-22] MEDS: Albuterol-Ipratrop 3 mg / 0.5 (3 ml) UD INH SCH ×4 (01:29→20:02)
[2018-01-22 07:25] LABS: HEMOGLOBIN 11.9 g/dL (11.0-16.0); MEAN CELL VOLUME 91.6 fL (81.0-99.0); MEAN CORPUSCULAR HGB CONC 33.8 g/dL (33.0-37.0); MEAN PLATELET VOLUME 8.2 fL (7.2-11.7); RBC 3.85 Mil/uL (3.80-5.20); RED CELL DISTRIBUTION WIDTH 13.3 % (11.5-14.5); WHITE BLOOD COUNT 8.2 K/uL (4.8-10.8)
[2018-01-22] MEDS: (Novolog) Insulin Aspart, Recombinant 100 u/ml 10 ml vial SC SCH ×4 (07:43→22:14)
--- NOTE | 2018-01-22 09:22 | CP.PCM.PN ---
Subjective - Date & Time of Evaluation Date of Evaluation: 01/22/18 Time of Evaluation: 09:20 - Subjective Subjective: PT ALERT, OOB IN CHAIR, +COUGH LESS NOW. +JOSE ROS; OTHERWISE NEG Objective - Vital Signs/Intake and Output Vital Signs (last 24 hours): Temp Pulse Resp BP Pulse Ox 98.0 F 112 H 20 127/60 94 L 01/22/18 07:05 01/22/18 07:05 01/22/18 07:05 01/22/18 07:05 01/22/18 07:05 - Medications Medications: Current Medications Albuterol/Ipratropium (Duoneb 3 Mg/0.5 Mg (3 Ml) Ud) 3 ml INH RQ6 [facility] Last Admin: 01/22/18 07:25 Dose: 3 ml Aspirin (Aspirin Chewable) 81 mg PO DAILY [facility] Last Admin: 01/21/18 10:12 Dose: 81 mg Cyanocobalamin (Vitamin B12 1000 Mcg Tab) 1,000 mcg PO DAILY [facility] Last Admin: 01/21/18 10:00 Dose: 1,000 mcg Enoxaparin Sodium (Lovenox) 40 mg SC DAILY [facility] Last Admin: 01/21/18 10:01 Dose: 40 mg Glyburide (Micronase) 5 mg PO BID [facility] Last Admin: 01/21/18 17:27 Dose: 5 mg Ceftriaxone Sodium 1 gm/ (Sodium Chloride) 100 mls @ 100 mls/hr IVPB DAILY [facility] PRN Reason: Protocol Last Admin: 01/21/18 10:03 Dose: 100 mls/hr Doxycycline Hyclate 100 mg/ (Sodium Chloride) 100 mls @ 100 mls/hr IVPB Q12H [facility] PRN Reason: Protocol Last Admin: 01/22/18 02:27 Dose: 100 mls/hr Insulin Aspart (Novolog) 0 unit SC ACHS [facility] PRN Reason: Protocol Last Admin: 01/22/18 07:43 Dose: Not Given Insulin Glargine (Lantus) 48 unit SC DAILY [facility] Last Admin: 01/21/18 10:01 Dose: 48 unit Metformin HCl (Glucophage) 500 mg PO BID [facility] Last Admin: 01/21/18 17:26 Dose: 500 mg Methimazole (Tapazole) 5 mg PO DAILY [facility] Methimazole (Tapazole) 2.5 mg PO Q7D [facility] Methimazole (Tapazole) 2.5 mg PO Q7D [facility] Multivitamins/Minerals (Therapeutic-M Tab) 1 tab PO DAILY [facility] Last Admin: 01/21/18 10:00 Dose: 1 tab Nicotine (Nicoderm Cq) 1 patch TD DAILY [facility] Last Admin: 01/21/18 10:02 Dose: Not Given Pantoprazole Sodium (Protonix Ec Tab) 40 mg PO DAILY [facility] Last Admin: 01/21/18 10:00 Dose: 40 mg Rosuvastatin Calcium (Crestor) 5 mg PO HS [facility] Last Admin: 01/21/18 21:27 Dose: 5 mg - Labs Labs: 01/22/18 07:10 01/20/18 11:57 - Constitutional Appears: No Acute Distress - Head Exam Head Exam: ATRAUMATIC, NORMOCEPHALIC - Eye Exam Eye Exam: EOMI, Normal appearance. absent: Scleral icterus - ENT Exam ENT Exam: Mucous Membranes Moist - Neck Exam Neck Exam: Full ROM, Normal Inspection - Respiratory Exam Respiratory Exam: Decreased Breath Sounds, Rhonchi - Cardiovascular Exam Cardiovascular Exam: RRR, +S1, +S2 - GI/Abdominal Exam GI & Abdominal Exam: Soft. absent: Tenderness - Rectal Exam Rectal Exam: Deferred - Extremities Exam Extremities Exam: absent: Calf Tenderness, Pedal Edema - Back Exam Back Exam: absent: CVA tenderness (L), CVA tenderness (R) - Neurological Exam Neurological Exam: Alert, Awake, CN II-XII Intact, Oriented x3 - Psychiatric Exam Psychiatric exam: Normal Affect, Normal Mood - Skin Skin Exam: absent: Rash Assessment and Plan (1) Hypertension Status: Acute (2) Diabetes Status: Acute (3) Hyperlipidemia Status: Acute (4) Smoking Status: Acute (5) Failure of outpatient treatment Status: Acute (6) Pneumonia Status: Acute (7) Thyromegaly Status: Acute - Assessment and Plan (Free Text) Assessment: RESP STATUS IMPROVING., AFEBRILE ON AB., F/U CULT. CONT PULM TOILET WITH NEB BD. , MONITOR O2 SAT. CXR REVIEWED., FOR ENDO F/U.DISCUSSED WITH STAFF.
[2018-01-22] MEDS: Multivitamin With Minerals Tab PO SCH (09:38)
[2018-01-22] MEDS: Pantoprazole 40 mg EC Tab PO SCH (09:39)
[2018-01-22] MEDS: Enoxaparin 40 mg Syringe SC SCH (09:39)
[2018-01-22] MEDS: (Lantus) Insulin Glargine, Recombinant SC SCH (09:39)
[2018-01-22] MEDS: methIMAzole 5 MG TAB PO SCH (09:39)
[2018-01-22] MEDS ORDERED: methIMAzole 2.5 MG TAB PO SCH (10:00)
--- NOTE | 2018-01-22 15:23 | CP.PCM.PN ---
Subjective - Date & Time of Evaluation Date of Evaluation: 01/22/18 Time of Evaluation: 09:00 - Subjective Subjective: less fever + cough NAD Objective - Vital Signs/Intake and Output Vital Signs (last 24 hours): Temp Pulse Resp BP Pulse Ox 98.0 F 112 H 20 127/60 94 L 01/22/18 07:05 01/22/18 07:05 01/22/18 07:05 01/22/18 07:05 01/22/18 07:05 - Medications Medications: Current Medications Albuterol/Ipratropium (Duoneb 3 Mg/0.5 Mg (3 Ml) Ud) 3 ml INH RQ6 [facility] Last Admin: 01/22/18 14:03 Dose: Not Given Aspirin (Aspirin Chewable) 81 mg PO DAILY [facility] Last Admin: 01/22/18 09:39 Dose: 81 mg Cyanocobalamin (Vitamin B12 1000 Mcg Tab) 1,000 mcg PO DAILY [facility] Last Admin: 01/22/18 09:38 Dose: 1,000 mcg Enoxaparin Sodium (Lovenox) 40 mg SC DAILY [facility] Last Admin: 01/22/18 09:39 Dose: 40 mg Glyburide (Micronase) 5 mg PO BID [facility] Last Admin: 01/22/18 09:40 Dose: Not Given Ceftriaxone Sodium 1 gm/ (Sodium Chloride) 100 mls @ 100 mls/hr IVPB DAILY [facility] PRN Reason: Protocol Last Admin: 01/22/18 09:38 Dose: 100 mls/hr Doxycycline Hyclate 100 mg/ (Sodium Chloride) 100 mls @ 100 mls/hr IVPB Q12H [facility] PRN Reason: Protocol Last Admin: 01/22/18 13:31 Dose: 100 mls/hr Insulin Aspart (Novolog) 0 unit SC ACHS [facility] PRN Reason: Protocol Last Admin: 01/22/18 12:49 Dose: 1 unit Insulin Glargine (Lantus) 48 unit SC DAILY [facility] Last Admin: 01/22/18 09:39 Dose: 48 unit Metformin HCl (Glucophage) 500 mg PO BID [facility] Last Admin: 01/22/18 09:38 Dose: 500 mg Methimazole (Tapazole) 5 mg PO DAILY [facility] Last Admin: 01/22/18 09:39 Dose: 5 mg Methimazole (Tapazole) 2.5 mg PO Q7D [facility] Last Admin: 01/22/18 09:39 Dose: 2.5 mg Methimazole (Tapazole) 2.5 mg PO Q7D [facility] Multivitamins/Minerals (Therapeutic-M Tab) 1 tab PO DAILY [facility] Last Admin: 01/22/18 09:38 Dose: 1 tab Nicotine (Nicoderm Cq) 1 patch TD DAILY [facility] Last Admin: 01/22/18 09:40 Dose: Not Given Pantoprazole Sodium (Protonix Ec Tab) 40 mg PO DAILY [facility] Last Admin: 01/22/18 09:39 Dose: 40 mg Rosuvastatin Calcium (Crestor) 5 mg PO HS [facility] Last Admin: 01/21/18 21:27 Dose: 5 mg - Labs Labs: 01/22/18 07:10 01/20/18 11:57 - Constitutional Appears: Non-toxic, Chronically Ill - Head Exam Head Exam: NORMOCEPHALIC - Eye Exam Eye Exam: PERRL - ENT Exam ENT Exam: Mucous Membranes Dry - Neck Exam Neck Exam: absent: Lymphadenopathy - Respiratory Exam Respiratory Exam: Decreased Breath Sounds - Cardiovascular Exam Cardiovascular Exam: REGULAR RHYTHM - GI/Abdominal Exam GI & Abdominal Exam: Distended, Soft - Rectal Exam Rectal Exam: Deferred - Exam Exam: NORMAL INSPECTION - Extremities Exam Extremities Exam: absent: Pedal Edema - Back Exam Back Exam: absent: CVA tenderness (L), CVA tenderness (R) Assessment and Plan (1) Pneumonia Status: Acute (2) Thyromegaly Status: Acute (3) Failure of outpatient treatment Status: Acute - Assessment and Plan (Free Text) Assessment: cont iv rx as per dr penny arriaga cultures
[2018-01-22 15:52] VITALS: O2SAT 100
--- NOTE | 2018-01-22 19:21 | CP.PCM.PN ---
Subjective - Date & Time of Evaluation Date of Evaluation: 01/22/18 Time of Evaluation: 10:00 - Subjective Subjective: clinically same Objective - Vital Signs/Intake and Output Vital Signs (last 24 hours): Temp Pulse Resp BP Pulse Ox 98.6 F 99 H 18 122/62 100 01/22/18 15:52 01/22/18 15:52 01/22/18 15:52 01/22/18 15:52 01/22/18 15:52 - Medications Medications: Current Medications Albuterol/Ipratropium (Duoneb 3 Mg/0.5 Mg (3 Ml) Ud) 3 ml INH RQ6 [facility] Last Admin: 01/22/18 14:03 Dose: Not Given Aspirin (Aspirin Chewable) 81 mg PO DAILY [facility] Last Admin: 01/22/18 09:39 Dose: 81 mg Cyanocobalamin (Vitamin B12 1000 Mcg Tab) 1,000 mcg PO DAILY [facility] Last Admin: 01/22/18 09:38 Dose: 1,000 mcg Enoxaparin Sodium (Lovenox) 40 mg SC DAILY [facility] Last Admin: 01/22/18 09:39 Dose: 40 mg Glyburide (Micronase) 5 mg PO BID [facility] Last Admin: 01/22/18 17:13 Dose: 5 mg Ceftriaxone Sodium 1 gm/ (Sodium Chloride) 100 mls @ 100 mls/hr IVPB DAILY [facility] PRN Reason: Protocol Last Admin: 01/22/18 09:38 Dose: 100 mls/hr Doxycycline Hyclate 100 mg/ (Sodium Chloride) 100 mls @ 100 mls/hr IVPB Q12H [facility] PRN Reason: Protocol Last Admin: 01/22/18 13:31 Dose: 100 mls/hr Insulin Aspart (Novolog) 0 unit SC ACHS [facility] PRN Reason: Protocol Last Admin: 01/22/18 18:47 Dose: Not Given Insulin Glargine (Lantus) 48 unit SC DAILY [facility] Last Admin: 01/22/18 09:39 Dose: 48 unit Metformin HCl (Glucophage) 500 mg PO BID [facility] Last Admin: 01/22/18 17:13 Dose: 500 mg Methimazole (Tapazole) 5 mg PO DAILY [facility] Last Admin: 01/22/18 09:39 Dose: 5 mg Methimazole (Tapazole) 2.5 mg PO Q7D [facility] Last Admin: 01/22/18 09:39 Dose: 2.5 mg Methimazole (Tapazole) 2.5 mg PO Q7D [facility] Multivitamins/Minerals (Therapeutic-M Tab) 1 tab PO DAILY [facility] Last Admin: 01/22/18 09:38 Dose: 1 tab Nicotine (Nicoderm Cq) 1 patch TD DAILY [facility] Last Admin: 01/22/18 09:40 Dose: Not Given Pantoprazole Sodium (Protonix Ec Tab) 40 mg PO DAILY [facility] Last Admin: 01/22/18 09:39 Dose: 40 mg Rosuvastatin Calcium (Crestor) 5 mg PO HS [facility] Last Admin: 01/21/18 21:27 Dose: 5 mg - Labs Labs: 01/22/18 07:10 01/20/18 11:57 - Constitutional Appears: Well - Head Exam Head Exam: ATRAUMATIC, NORMAL INSPECTION, NORMOCEPHALIC - Eye Exam Eye Exam: EOMI, Normal appearance, PERRL Pupil Exam: NORMAL ACCOMODATION, PERRL - ENT Exam ENT Exam: Mucous Membranes Moist, Normal Exam - Neck Exam Neck Exam: Full ROM, Normal Inspection. absent: Lymphadenopathy - Respiratory Exam Respiratory Exam: Decreased Breath Sounds - Cardiovascular Exam Cardiovascular Exam: REGULAR RHYTHM, +S1, +S2 - GI/Abdominal Exam GI & Abdominal Exam: Soft, Diminished Bowel Sounds - Rectal Exam Rectal Exam: Deferred
[2018-01-23] MEDS: Albuterol-Ipratrop 3 mg / 0.5 (3 ml) UD INH SCH ×3 (01:28→13:27)
[2018-01-23] MEDS: (Novolog) Insulin Aspart, Recombinant 100 u/ml 10 ml vial SC SCH ×2 (07:19→12:34)
[2018-01-23 08:01] VITALS: BP 123/71; PULSE 98; RESP 20; TEMP 98.3
[2018-01-23] MEDS: methIMAzole 5 MG TAB PO SCH (09:58)
[2018-01-23] MEDS: Pantoprazole 40 mg EC Tab PO SCH (09:58)
[2018-01-23] MEDS: Multivitamin With Minerals Tab PO SCH (09:59)
[2018-01-23] MEDS: Enoxaparin 40 mg Syringe SC SCH (10:08)
[2018-01-23] MEDS: (Lantus) Insulin Glargine, Recombinant SC SCH (10:08)
--- NOTE | 2018-01-23 10:23 | CP.PCM.PN ---
Subjective - Date & Time of Evaluation Date of Evaluation: 01/23/18 Time of Evaluation: 10:20 - Subjective Subjective: PT ALERT, OOB IN CHAIR., LESS COUGH., LESS JOSE. ROS; OTHERWISE NEG. Objective - Vital Signs/Intake and Output Vital Signs (last 24 hours): Temp Pulse Resp BP Pulse Ox 98.3 F 98 H 20 123/71 100 01/23/18 07:59 01/23/18 07:59 01/23/18 07:59 01/23/18 07:59 01/23/18 07:59 - Medications Medications: Current Medications Albuterol/Ipratropium (Duoneb 3 Mg/0.5 Mg (3 Ml) Ud) 3 ml INH RQ6 [facility] Last Admin: 01/23/18 07:48 Dose: 3 ml Aspirin (Aspirin Chewable) 81 mg PO DAILY [facility] Last Admin: 01/23/18 09:59 Dose: 81 mg Cyanocobalamin (Vitamin B12 1000 Mcg Tab) 1,000 mcg PO DAILY [facility] Last Admin: 01/23/18 09:59 Dose: 1,000 mcg Enoxaparin Sodium (Lovenox) 40 mg SC DAILY [facility] Last Admin: 01/23/18 10:08 Dose: Not Given Glyburide (Micronase) 5 mg PO BID [facility] Last Admin: 01/23/18 10:08 Dose: Not Given Ceftriaxone Sodium 1 gm/ (Sodium Chloride) 100 mls @ 100 mls/hr IVPB DAILY [facility] PRN Reason: Protocol Last Admin: 01/23/18 09:58 Dose: 100 mls/hr Doxycycline Hyclate 100 mg/ (Sodium Chloride) 100 mls @ 100 mls/hr IVPB Q12H [facility] PRN Reason: Protocol Last Admin: 01/23/18 02:19 Dose: 100 mls/hr Insulin Aspart (Novolog) 0 unit SC ACHS [facility] PRN Reason: Protocol Last Admin: 01/23/18 07:19 Dose: Not Given Insulin Glargine (Lantus) 48 unit SC DAILY [facility] Last Admin: 01/23/18 10:08 Dose: Not Given Metformin HCl (Glucophage) 500 mg PO BID [facility] Last Admin: 01/23/18 10:08 Dose: Not Given Methimazole (Tapazole) 5 mg PO DAILY [facility] Last Admin: 01/23/18 09:58 Dose: 5 mg Methimazole (Tapazole) 2.5 mg PO Q7D [facility] Last Admin: 01/22/18 09:39 Dose: 2.5 mg Methimazole (Tapazole) 2.5 mg PO Q7D [facility] Multivitamins/Minerals (Therapeutic-M Tab) 1 tab PO DAILY [facility] Last Admin: 01/23/18 09:59 Dose: 1 tab Nicotine (Nicoderm Cq) 1 patch TD DAILY [facility] Last Admin: 01/23/18 10:08 Dose: Not Given Pantoprazole Sodium (Protonix Ec Tab) 40 mg PO DAILY [facility] Last Admin: 01/23/18 09:58 Dose: 40 mg Rosuvastatin Calcium (Crestor) 5 mg PO HS [facility] Last Admin: 01/22/18 21:55 Dose: 5 mg - Labs Labs: 01/22/18 07:10 01/20/18 11:57 - Constitutional Appears: Non-toxic, No Acute Distress - Head Exam Head Exam: ATRAUMATIC, NORMOCEPHALIC - Eye Exam Eye Exam: EOMI, Normal appearance - ENT Exam ENT Exam: Mucous Membranes Moist - Neck Exam Neck Exam: absent: Tenderness - Respiratory Exam Respiratory Exam: Decreased Breath Sounds. absent: Wheezes, Respiratory Distress Additional comments: DECREASED BS LEFT BASE - Cardiovascular Exam Cardiovascular Exam: RRR, +S1, +S2 - GI/Abdominal Exam GI & Abdominal Exam: Soft. absent: Tenderness - Rectal Exam Rectal Exam: Deferred - Extremities Exam Extremities Exam: absent: Calf Tenderness, Pedal Edema - Back Exam Back Exam: absent: CVA tenderness (L), CVA tenderness (R) - Neurological Exam Neurological Exam: Alert, Awake, CN II-XII Intact, Oriented x3 - Psychiatric Exam Psychiatric exam: Normal Affect, Normal Mood - Skin Skin Exam: absent: Rash Assessment and Plan (1) Hypertension Status: Acute (2) Diabetes Status: Acute (3) Hyperlipidemia Status: Acute (4) Smoking Status: Acute (5) Failure of outpatient treatment Status: Acute (6) Pneumonia Status: Acute (7) Thyromegaly Status: Acute - Assessment and Plan (Free Text) Assessment: RESP STATUS IMPROVING., AFEBRILE ON AB., CONT PULM TOILET., NEB BD. MONITOR O2 SAT. CXR REVIEWED. DISCUSSED WITH STAFF.
--- NOTE | 2018-01-23 15:16 | CP.PCM.PN ---
Subjective - Date & Time of Evaluation Date of Evaluation: 01/23/18 Time of Evaluation: 15:15 - Subjective Subjective: -FOLLOW UP WITH DR. Danny MEZA OR YOUR PRIMARY DOCTOR IN THE OFFICE WITHIN 1 WEEK AFTER DISCHARGE---CALL THE OFFICE TO MAKE APPT. -FOLLOW UP WITH YOUR PERSONNEL WORKER IN THE OFFICE AND TAKE COPY OF YOUR THYROID ULTRASOUND AND LAB WORK WITH YOU TO APPT. -YOU ARE NOT CLEARED TO RETURN TO WORK UNTIL 01/30/18. IF SYMPTOMS RETURN OR WORSEN BEFORE THEN, CONTACT YOUR DOCTOR PRIOR TO RETURNING TO WORK. -CONTINUE HOME MEDICATIONS USUAL. -NEW PRESCRIPTIONS INCLUDE: 1) NEBULIZER TREATMENT---USE ONLY NEEDED FOR ANY COUGHING, SHORTNESS OF BREATH, CHEST TIGHTNESS. 2) KEFLEX (ANTIBIOTIC) 500 MG ---TAKE 1 CAPSULE BY MOUTH THREE TIMES A DAY ( BREAKFAST, LUNCH AND DINNER) FOR 1 WEEK. START ON SATURDAY, AND LAST DAY IS 01/31/18. -PLEASE ARRANGE FOR A REPEAT CHEST XRAY AFTER THE 7 DAYS OF ANTIBIOTICS (AFTER )---NOTIFY YOUR DOCTOR'S OFFICE THAT YOU WILL HAVE A CHEST XRAY DONE AND THE RADIOLOGY PLACE WILL SEND A COPY OF YOUR RESULTS TO YOUR DOCTOR. Objective - Vital Signs/Intake and Output Vital Signs (last 24 hours): Temp Pulse Resp BP Pulse Ox 98.3 F 98 H 20 123/71 100 01/23/18 07:59 01/23/18 07:59 01/23/18 07:59 01/23/18 07:59 01/23/18 07:59 - Medications Medications: Current Medications Albuterol/Ipratropium (Duoneb 3 Mg/0.5 Mg (3 Ml) Ud) 3 ml INH RQ6 [facility] Last Admin: 01/23/18 13:27 Dose: 3 ml Aspirin (Aspirin Chewable) 81 mg PO DAILY [facility] Last Admin: 01/23/18 09:59 Dose: 81 mg Cyanocobalamin (Vitamin B12 1000 Mcg Tab) 1,000 mcg PO DAILY [facility] Last Admin: 01/23/18 09:59 Dose: 1,000 mcg Enoxaparin Sodium (Lovenox) 40 mg SC DAILY [facility] Last Admin: 01/23/18 10:08 Dose: Not Given Glyburide (Micronase) 5 mg PO BID [facility] Last Admin: 01/23/18 10:08 Dose: Not Given Ceftriaxone Sodium 1 gm/ (Sodium Chloride) 100 mls @ 100 mls/hr IVPB DAILY [facility] PRN Reason: Protocol Last Admin: 01/23/18 09:58 Dose: 100 mls/hr Doxycycline Hyclate 100 mg/ (Sodium Chloride) 100 mls @ 100 mls/hr IVPB Q12H [facility] PRN Reason: Protocol Last Admin: 01/23/18 13:30 Dose: 100 mls/hr Insulin Aspart (Novolog) 0 unit SC ACHS [facility] PRN Reason: Protocol Last Admin: 01/23/18 12:34 Dose: 2 unit Insulin Glargine (Lantus) 48 unit SC DAILY [facility] Last Admin: 01/23/18 10:08 Dose: Not Given Metformin HCl (Glucophage) 500 mg PO BID [facility] Last Admin: 01/23/18 10:08 Dose: Not Given Methimazole (Tapazole) 5 mg PO DAILY [facility] Last Admin: 01/23/18 09:58 Dose: 5 mg Methimazole (Tapazole) 2.5 mg PO Q7D [facility] Last Admin: 01/22/18 09:39 Dose: 2.5 mg Methimazole (Tapazole) 2.5 mg PO Q7D [facility] Multivitamins/Minerals (Therapeutic-M Tab) 1 tab PO DAILY [facility] Last Admin: 01/23/18 09:59 Dose: 1 tab Nicotine (Nicoderm Cq) 1 patch TD DAILY [facility] Last Admin: 01/23/18 10:08 Dose: Not Given Pantoprazole Sodium (Protonix Ec Tab) 40 mg PO DAILY [facility] Last Admin: 01/23/18 09:58 Dose: 40 mg Rosuvastatin Calcium (Crestor) 5 mg PO [facility] Last Admin: 01/22/18 21:55 Dose: 5 mg - Labs Labs: 01/22/18 07:10 01/20/18 11:57
[2018-01-26] MEDS ORDERED: methIMAzole 2.5 MG TAB PO SCH (10:00)
[2018-01-27] MEDS ORDERED: methIMAzole 2.5 MG TAB PO SCH (10:00)
== END 2018-01-23 16:05 | disposition home or self-care (01) | DRG 194 ==
LOC: C.ER 11:09 → C.5S 14:03
PROVIDERS: ADMIT Internal Medicine Nephrology; ATTEND Internal Medicine Nephrology
DX: J18.9 Pneumonia, unspecified organism (principal); I31.3 Pericardial effusion (noninflammatory); I10 Essential (primary) hypertension; F17.200 Nicotine dependence, unspecified, uncomplicated; E78.5 Hyperlipidemia, unspecified; E11.9 Type 2 diabetes mellitus without complications; E04.9 Nontoxic goiter, unspecified; Z79.4 Long term (current) use of insulin